=== PATIENT | male | born 1985 | race Two or more races ===

== ENCOUNTER 2019-07-06 09:03 | Day surgery (SDC) | payer OTHER ==
[2019-07-06] MEDS ORDERED: cefTRIAXone 2 GM VIAL ONE (09:05)
[2019-07-06] MEDS ORDERED: LACTATED RINGERS 1,000 ML IV ONE ×3 (09:08→16:05)
--- NOTE | 2019-07-06 10:19 | ANESTHESIA ---
Pre-Anesthesia VS, & Labs - Diagnosis R shoulder labral tear - Procedure R shoulder arthroscopy w/labral repair Vital Signs: Temp Pulse Resp BP Pulse Ox 36.7 C 71 16 136/79 H 100 07/06/19 09:08 07/06/19 09:08 07/06/19 09:08 07/06/19 09:08 07/06/19 09:08 Height 5 ft 9 in Weight (kg) 78.93 kg - NPO >8 hours Home Medications and Allergies Home Medications: Ambulatory Orders No Known Home Medications 06/22/19 No Known Home Medications 06/22/19 Allergies/Adverse Reactions: Allergies Allergy/AdvReac Type Severity Reaction Status Date / Time No Known Drug Allergies Allergy Verified 06/22/19 11:30 Anes History & Medical History - Anesthetic History Anesthesia Complications: reports: No previous complications Family history of Anesthesia Complications: Denies Family history of Malignant Hyperthermia: Denies - Medical History Cardiovascular: reports: None Pulmonary: reports: None Gastrointestinal: reports: None Urinary: reports: None Musculoskeletal: reports: Other Endocrine/Autoimmune: reports: None Skin: reports: None Exam General: Alert, Oriented x3, Cooperative Dental: WNL Mouth Opening: Greater than 4 Fingerbreadths Neck Mobility: Normal Mallampati classification: I Thyromental Distance: greater than 6 cm Respiratory: Lungs clear, Normal breath sounds Cardiovascular: Regular rate Neurological: Normal speech, Other (numbness to R hand following bike race 1 month ago. Yet to resolve. EMG study was "normal' per pt but numbness remains. Explained rationale for not performing ISB for surgery with existing neurological deficit.) Mental/Cognitive Status: Alert/Oriented X3, Normal for patient Cognitive Status: Within normal limits Plan Anesthesia Type: General Consent for Procedure(s) Verified and Reviewed: Yes Code Status: Attempt Resuscitation ASA classification: 1-Healthy patient Is this case an emergency?: No
[2019-07-06] MEDS ORDERED: EPINEPHrine 1 MG/ML AMP ONE ×2 (11:42)
[2019-07-06] MEDS ORDERED: BUPIVACAINE 0.25% PF 30 ML VIAL ONE (11:42)
[2019-07-06] MEDS ORDERED: EPINEPHrine 1 MG/ML AMP IR ONE (12:58)
[2019-07-06] MEDS ORDERED: BUPIVACAINE 0.25% PF 30 ML VIAL SUBQ ONE ×2 (12:59)
[2019-07-06] MEDS ORDERED: ONDANSETRON 4 MG/2 ML VIAL IVP PRN (15:22)
[2019-07-06] MEDS ORDERED: oxyCODONE 5 MG TABLET PO PRN (15:22)
--- NOTE | 2019-07-06 15:32 | OPERATIVE REPORT ---
Operative Report - Other Other Information/Narrative: Date of Surgery: 06 July 2019 Pre-Op Diagnosis: Right shoulder instability, right shoulder labral tear, right shoulder loose body, SLAP tear Procedure: Right shoulder arthroscopic anterior and posterior labral repair with capsulorrhaphy. Right shoulder arthroscopic loose body removal, type I SLAP tear debridement Postop Diagnosis: Same as above Primary Surgeon: Jonatan Garrett Secondary Surgeon: None Complications: None EBL: 20 IMPLANTS: Arthrex knotless suture tack x6 POSTOPERATIVE PLAN: 0-2 weeks-Sling at all times. Pendulum exercises 5 times per day. 2-6 weeks-Passive range of motion with the following limits: FF to 120 degrees with the palm up, ER to 30 degrees, abduction to 30 degrees 6-12 weeks-Active range of motion in all planes without limitation. Isometric rotator cuff strengthening is allowed 12-16 weeks-Gradually increase strengthening 16 weeks and beyond-Introduce dynamic activities EXAMINATION UNDER ANESTHESIA: ROM: Full Anterior load and shift: Grade 1 with popping. Contralateral side was grade 1 but without popping Posterior load and shift: Grade 2+ with crepitus. Contralateral side was grade 2 but smooth Inferior sulcus: Grade 1-2 bilateral ARTHROSCOPIC FINDINGS: Rotator interval: Injected synovium but no injury Biceps tendon & SLAP: Type I tear. Dawson is intact. No biceps tendon tear Subscapularis: Intact. An 8 x 5 x 3 mm loose body was retrieved from the subscapularis recess Rotator Cuff: Intact HAGL: None Labrum: Circumferential labral tear Glenoid Cartilage: Glad lesion on the anterior glenoid for 5 mm rim. It was slightly larger higher on the clock face Humeral Head Cartilage: Intact INDICATION FOR SURGERY: 33-year-old male woman had a shoulder subluxation episode 1 year ago and has reported chronic instability sensation since then. He has been unable to throw anything and reach into the backseat of his car because of instability and pain. Nonoperative managment failed to resolve symptoms. The risks, benefits, and alternatives were discussed. Risks included pain, bleeding, infection, damage to nearby structures, lack of symptom relief, implant complications, stiffness, need for further surgeries, DVT, PE, stroke, and even . He signed a written consent form. PROCEDURE IN DETAIL: The patient was met in the preoperative holding on the day of the procedure. Operative extremity was signed. Consent was verified. He desired to proceed. Regional anesthesia was obtained in the preoperative area. They were brought to the operating room and surrendered to anesthesia. Once general anesthesia was obtained they were placed in the lateral decubitus position with the operative side up. An axillary roll was placed and all bony prominences were well-padded. They were then prepped and draped in the standard sterile fashion. A surgical timeout was held to confirm the patient procedure, identity, procedure, laterality, allergies, images, and antibiotics. All were in agreement we proceeded. Balanced suspension was applied and a standard diagnostic arthroscopy was performed utilizing posterior and anterior superior portal sites. The anterior superior portal site was created under direct visualization. The findings of the diagnostic arthroscopy can be found above. I then used the [place] to identify and remove the loose body from the subscapularis recess. A mid glenoid portal was then created under direct visualization bordering the subscapularis tendon. I then used a combination of high and low angled elevators to develop the labral tear and release it from off the glenoid neck. I then used to the pineapple rasp to finalize my release and abraded the bone to a bleeding bed. A sucker shaver was placed in the interval to debride any loose tissue and further abrade the glenoid neck. Any loose cartilage was debrided at that time. I then established a percutaneous 7:00 portal utilizing the Arthrex system. I then placed an anchor at the 530 position. The suture was passed using an appropriate 45 degree suture lasso. The labrum was secured using knotless technique. Appropriate tension was confirmed with a probe and the excess suture was cut. Using the same technique additional anchors were placed at 630, 730, and 830 posteriorly. The labrum at the top edge was intact posteriorly. I then placed an anchor at 430 and 330 anteriorly coming up onto the face slightly to cover the cartilage lesion with capsule. I did not perform a large capsular shift anteriorly because the inferior band of the anterior glenohumeral ligament was well tensioned. Proper capsular tension was restored and a labral bumper was recreated. Balanced suspension was then released and final images were taken showing the humeral head centered in the glenoid. The portal sites were then closed with 3-0 Monocryl buried. Mastisol and Steri- Strips were applied. A sterile dressing and a sling was applied. He was awakened and transferred to the recovery room.
[2019-07-06] MEDS ORDERED: HYDROmorphone 0.5 MG/0.5 ML SYRINGE ONE ×2 (15:50→15:56)
[2019-07-06] MEDS ORDERED: oxyCODONE 5 MG TABLET ONE (16:23)
[2019-07-06 16:41] VITALS: BP 141/83
== END 2019-07-06 09:04 | disposition home or self-care (01) ==
LOC: SDS 09:03
PROVIDERS: ATTEND Orthopaedic Surgery
PROC: 0RCJ4ZZ Extirpation of Matter from Right Shoulder Joint, Percutaneous Endoscopic Approach (ICD-10-PCS; 2019-07-06)
PROC: 0RQJ4ZZ Repair Right Shoulder Joint, Percutaneous Endoscopic Approach (ICD-10-PCS; principal; 2019-07-06 10:30)
DX: S43.491A Other sprain of right shoulder joint, initial encounter (principal); M25.311 Other instability, right shoulder; M24.011 Loose body in right shoulder; R20.0 Anesthesia of skin; R20.2 Paresthesia of skin; Z87.891 Personal history of nicotine dependence
CPT/HCPCS: 29806; 29819; A9270; C1713; J1170; J7120